=== PATIENT | female | born 1985 | race Native Hawaiian/Other Pacific Islander ===

== ENCOUNTER 2019-05-22 07:31 | Emergency (ER) | payer BC ==
[~2019-05-22] VITALS: Ht 167.6 cm; Wt 81.6 kg
[~2019-05-22 07:31] MED LIST: ALPR0.2566 PO; AZIT250T3 PO; CIPRO500 MG PO; CYCL10TA35 PO; NASONEX50 MCG/AC; NEXIUM40 M1 OR; RANI150T78 PO; SINGULAIR10 MG OR
[2019-05-22 07:46] VITALS: TEMP 97.5
[2019-05-22 08:07] VITALS: BP 124/74
== END 2019-05-22 08:09 | disposition home or self-care (01) ==
LOC: ED 07:31
DX: I80.8 Phlebitis and thrombophlebitis of other sites (principal)
CPT/HCPCS: 99281; 99282

== ENCOUNTER 2019-05-24 16:59 | Outpatient (CLI) | payer BC | END 2019-05-24 21:42 | disposition home or self-care (01) | LOC: LAB 16:59 | DX: I80.02 Phlebitis and thrombophlebitis of superficial vessels of left lower extremity (principal) | CPT/HCPCS: 85379 ==

== ENCOUNTER 2019-06-16 10:26 | Emergency (ER) | payer BC ==
[~2019-06-16] VITALS: Ht 348 cm; Wt 81.6 kg
[2019-06-16 10:30] VITALS: TEMP 98.1
[2019-06-16] MEDS ORDERED: CETI10TA PO (10:39)
[2019-06-16] MEDS ORDERED: APIX1TAB PO (10:39)
[2019-06-16 11:45] VITALS: BP 127/55
== END 2019-06-16 11:45 | disposition home or self-care (01) ==
LOC: ED 10:26
DX: S09.90XA Unspecified injury of head, initial encounter (principal); W22.8XXA Striking against or struck by other objects, initial encounter
CPT/HCPCS: 81025; 99283

== ENCOUNTER 2020-11-08 10:28 | Outpatient (CLI) | payer BC ==
[~2020-11-08 10:28] MED LIST changes: +APIX1TAB PO; +CETI10TA PO
== END 2020-11-08 21:41 | disposition home or self-care (01) ==
LOC: US 10:28
PROVIDERS: ATTEND Nurse Practitioner Family
DX: M79.604 Pain in right leg (principal)

== ENCOUNTER 2021-11-12 07:41 | Outpatient (CLI) | payer BC | END 2021-11-12 19:29 | disposition home or self-care (01) | LOC: US 07:41 | PROVIDERS: ATTEND Nurse Practitioner Family | DX: K42.9 Umbilical hernia without obstruction or gangrene (principal) ==

== ENCOUNTER 2021-11-14 07:42 | Outpatient (CLI) | payer BC | END 2021-11-14 18:50 | disposition home or self-care (01) | LOC: CT 07:42 | PROVIDERS: ATTEND Nurse Practitioner Family | DX: K42.9 Umbilical hernia without obstruction or gangrene (principal) | CPT/HCPCS: Q9963 ==

== ENCOUNTER 2021-11-19 09:04 | Outpatient (CLI) | payer BC, OTHER ==
[2021-11-19 09:36] LABS: PLATELET COUNT 330 K/uL (152-353)
[2021-11-19 09:47] LABS: POTASSIUM 4.2 mmol/L (3.6-5.2); SODIUM 141 mmol/L (136-145)
== END 2021-11-19 20:22 | disposition home or self-care (01) ==
LOC: LABW 09:04
PROVIDERS: ATTEND Nurse Practitioner Family
DX: I10 Essential (primary) hypertension (principal); R10.9 Unspecified abdominal pain
CPT/HCPCS: 36415; 80053; 82150; 82550; 82553; 83690; 84484; 85027; 93005

== ENCOUNTER 2022-05-16 15:47 | Outpatient (CLI) | payer BC ==
[~2022-05-16] VITALS: Ht 170.2 cm; Wt 96.7 kg
[2022-05-16 16:04] VITALS: BP 136/92; TEMP 97.9
[2022-05-16 16:50] VITALS: BP 147/95; TEMP 98.4
[2022-05-16 17:05] VITALS: BP 149/97; TEMP 98.5
[2022-05-16 17:35] VITALS: BP 147/98; TEMP 98.1
--- NOTE | 2022-05-16 18:30 | NUR ---
1604 PT AMBULATED TO ROOM 1126 ACCOMP[ANIED BY HER . VS OBTAINED. 24 G PIV TO LFA X 2 ATTEMPTS 1635 BEBTELOVIMAB IVP OVER 30SECONDS FOLLOWED BY 10 ML NS. PT TOLERATED WILL MONITOR VS PER ORDER. 1740 PT TOLERATED INFUSION WITH NO ADVERSE REACTIONS. IV D/C INTACT. PT AMBULATED OUT OF FACILITY TO POV WITH HER
== END 2022-05-16 19:09 | disposition home or self-care (01) ==
LOC: INF 15:47
PROVIDERS: ATTEND Family Medicine
DX: Z23 Encounter for immunization (principal); U07.1 COVID-19
CPT/HCPCS: 96374; Q0222

== ENCOUNTER 2022-07-15 08:45 | Outpatient (CLI) | payer BC ==
[2022-07-15 09:29] LABS: POTASSIUM 3.3 mmol/L (3.6-5.2)
[2022-07-15 09:34] LABS: PLATELET COUNT 305 K/uL (152-353)
== END 2022-07-15 19:20 | disposition home or self-care (01) ==
LOC: LABW 08:45
PROVIDERS: ATTEND Nurse Practitioner Family
DX: R60.0 Localized edema (principal)
CPT/HCPCS: 36415; 80053; 84550; 85027; 85379

== ENCOUNTER 2022-12-24 16:44 | Outpatient (CLI) | payer BC ==
[2022-12-24 17:23] LABS: POTASSIUM 3.8 mmol/L (3.6-5.2)
== END 2022-12-24 22:10 | disposition home or self-care (01) ==
LOC: LAB 16:44
PROVIDERS: ATTEND Nurse Practitioner Family
DX: R10.11 Right upper quadrant pain (principal)
CPT/HCPCS: 36415; 80053; 82150; 83690

== ENCOUNTER 2022-12-25 09:05 | Outpatient (CLI) | payer BC | END 2022-12-25 19:13 | disposition home or self-care (01) | LOC: US 09:05 | PROVIDERS: ATTEND Nurse Practitioner Family | DX: R10.11 Right upper quadrant pain (principal) ==